=== PATIENT | male | born 1970 | race Two or more races ===

== ENCOUNTER 2017-03-31 15:35 | Emergency (ER) | payer SELFPAY ==
[~2017-03-31] VITALS: Ht 167.6 cm; Wt 87.0 kg
[2017-03-31 17:36] VITALS: BP 136/74
== END 2017-04-01 08:09 | disposition left against medical advice (07) ==
LOC: ER 04-01 07:50
DX: Z53.21 Procedure and treatment not carried out due to patient leaving prior to being seen by health care provider (principal)

== ENCOUNTER 2017-04-01 10:24 | Emergency (ER) | payer SELFPAY ==
[~2017-04-01] VITALS: Ht 167.6 cm; Wt 87.0 kg
[2017-04-01 10:50] VITALS: BP 124/70
[2017-04-01] MEDS ORDERED: ACETAMINOPHEN 500MG TABLET PO ONE (13:45)
== END 2017-04-01 17:38 | disposition home or self-care (01) ==
LOC: ER 17:29
DX: L30.9 Dermatitis, unspecified (principal); R51 Headache; R21 Rash and other nonspecific skin eruption; N28.9 Disorder of kidney and ureter, unspecified; I10 Essential (primary) hypertension; Z98.890 Other specified postprocedural states; Z91.048 Other nonmedicinal substance allergy status
CPT/HCPCS: 99282